=== PATIENT | female | born 1995 | race Caucasian/White ===

== ENCOUNTER 2020-07-03 19:50 | Emergency (ER) | payer MEDICAID ==
[~2020-07-03] VITALS: Ht 175.3 cm; Wt 106.0 kg
[2020-07-03 20:49] VITALS: BP 133/74
== END 2020-07-03 20:51 | disposition home or self-care (01) ==
LOC: ER 19:50
DX: B34.9 Viral infection, unspecified (principal); R07.89 Other chest pain; M79.10 Myalgia, unspecified site; J02.9 Acute pharyngitis, unspecified; F12.10 Cannabis abuse, uncomplicated; Z03.818 Encounter for observation for suspected exposure to other biological agents ruled out
CPT/HCPCS: 87635; 93005; 99283; C9803

== ENCOUNTER 2020-07-31 22:00 | Emergency (ER) | payer MEDICAID ==
[~2020-07-31] VITALS: Ht 175.3 cm; Wt 104.0 kg
[2020-07-31 22:38] VITALS: BP 138/98
== END 2020-07-31 23:01 | disposition home or self-care (01) ==
LOC: ER 22:00
DX: U07.1 COVID-19 (principal); R07.1 Chest pain on breathing
CPT/HCPCS: 99281

== ENCOUNTER 2020-09-16 04:10 | Emergency (ER) | payer MEDICAID, OTHER ==
[~2020-09-16] VITALS: Ht 175.3 cm; Wt 104.0 kg
[2020-09-16 04:17] VITALS: BP 127/83
[2020-09-16] MEDS ORDERED: METOCLOPRAMIDE HCL 10MG/2ML VIAL IV STA (05:19)
[2020-09-16 05:37] LABS: BASOPHILS % 0.3 % (0.0-2.0); HEMATOCRIT. 41.2 % (36.0-48.0); HEMOGLOBIN. 13.5 g/dL (12.0-16.0); LYMPHOCYTES % 16.2 % (20.0-50.0); MEAN CORPUSCULAR VOLUME 94.7 fL (81.0-99.0); MEAN PLATELET VOLUME 9.9 fl (7.4-10.4); MONOCYTES % 5.8 % (2.0-8.0); NEUTROPHILS % 76.7 % (40.0-76.0); PLATELET 220 x1000/uL (130-400); RED BLOOD CELL COUNT 4.35 mill/uL (4.2-5.4); RED CELL DISTRIBUTION WIDTH 13.1 % (11.6-14.6)
[2020-09-16 05:44] LABS: CHLORIDE 105 mEq/L (98-107)
[2020-09-16 05:48] LABS: ETHANOL BLOOD < 10 mg/dL
[2020-09-16 05:58] LABS: CLARITY URINE CLOUDY (CLEAR); COLOR URINE YELLOW (YELLOW); KETONES URINE TRACE (NEGATIVE); LEUKOCYTE ESTERASE URINE 3+ (NEGATIVE); NITRITE URINE NEGATIVE (NEGATIVE); OCCULT BLOOD URINE NEGATIVE (NEGATIVE); PROTEIN URINE TRACE (NEGATIVE); SPECIFIC GRAVITY URINE 1.028 (1.005-1.030)
[2020-09-16 06:01] LABS: HCG SCREEN NEGATIVE
[2020-09-16] MEDS ORDERED: FAMOTIDINE 20MG TABLET PO ONE (06:15)
[2020-09-16] MEDS ORDERED: FAMOTIDINE 20MG TABLET PO SCH (06:30)
[2020-09-16] MEDS ORDERED: FAMO40TA7 MT (06:52)
== END 2020-09-16 07:26 | disposition home or self-care (01) ==
LOC: ER 04:10
DX: K29.70 Gastritis, unspecified, without bleeding (principal); R82.81 Pyuria; K21.9 Gastro-esophageal reflux disease without esophagitis; F12.10 Cannabis abuse, uncomplicated
CPT/HCPCS: 36415; 80048; 80076; 80320; 81003; 81025; 83690; 84703; 85025; 96374; 99283; J2765; G0480

== ENCOUNTER 2020-12-02 21:53 | Emergency (ER) | payer MEDICAID ==
[~2020-12-02] VITALS: Ht 175.3 cm; Wt 110.4 kg
[~2020-12-02 21:53] MED LIST: FAMO40TA7 MT
[2020-12-02] MEDS ORDERED: ACETAMINOPHEN 325MG TABLET PO ONE (22:45)
[2020-12-02] MEDS ORDERED: NITROGLYCERIN 0.4MG TABLET SL SL PRN (22:45)
[2020-12-02] MEDS ORDERED: ASPIRIN 81MG TABLET PO ONE (22:45)
[2020-12-03 00:13] LABS: BASOPHILS % 0.5 % (0.0-2.0); EOSINOPHILS % 2.4 % (0.0-5.0); HEMATOCRIT. 38.4 % (36.0-48.0); LYMPHOCYTES % 29.4 % (20.0-50.0); MEAN CORPUSCULAR HEMOGLOBIN 31.7 pg (28.0-32.0); MEAN CORPUSCULAR VOLUME 93.5 fL (81.0-99.0); MEAN PLATELET VOLUME 9.7 fl (7.4-10.4); MONOCYTES % 7.1 % (2.0-8.0); NEUTROPHILS % 60.6 % (40.0-76.0); PLATELET 207 x1000/uL (130-400); RED CELL DISTRIBUTION WIDTH 13.1 % (11.6-14.6)
[2020-12-03 00:18] LABS: CHLORIDE 105 mEq/L (98-107)
[2020-12-03 00:20] LABS: HCG SCREEN NEGATIVE
[2020-12-03 00:21] LABS: PARTIAL THROMBOPLASTIN TIME 26.3 sec (23.4-31.0); PROTHROMBIN TIME 10.3 sec (9.6-11.0)
[2020-12-03] MEDS ORDERED: IBUP-2028 MT (01:43)
[2020-12-03 03:12] VITALS: BP 145/84
== END 2020-12-03 03:13 | disposition home or self-care (01) ==
LOC: ER 21:53
DX: R07.89 Other chest pain (principal); R42 Dizziness and giddiness; D64.9 Anemia, unspecified; F12.10 Cannabis abuse, uncomplicated
CPT/HCPCS: 36415; 71045; 80053; 81025; 83880; 84484; 84703; 85025; 85610; 85730; 93005; 99285; Z7610

== ENCOUNTER 2021-11-06 03:25 | Emergency (ER) | payer MEDICAID, OTHER ==
[~2021-11-06] VITALS: Ht 175.3 cm; Wt 104.0 kg
[~2021-11-06 03:25] MED LIST changes: +IBUP-2028 MT
[2021-11-06] MEDS ORDERED: IBUPROFEN 600MG TABLET PO ONE (04:15)
[2021-11-06 04:23] LABS: BASOPHILS % 0.4 % (0.0-2.0); EOSINOPHILS % 0.9 % (0.0-5.0); HEMATOCRIT. 36.9 % (36.0-48.0); HEMOGLOBIN. 12.6 g/dL (12.0-16.0); LYMPHOCYTES % 27.2 % (20.0-50.0); MEAN CORPUSCULAR HEMOGLOBIN 32.7 pg (28.0-32.0); MEAN CORPUSCULAR VOLUME 95.9 fL (81.0-99.0); MEAN PLATELET VOLUME 8.8 fl (7.4-10.4); MONOCYTES % 7.1 % (2.0-8.0); NEUTROPHILS % 64.4 % (40.0-76.0); PLATELET 169 x1000/uL (130-400); RED BLOOD CELL COUNT 3.85 mill/uL (4.2-5.4); RED CELL DISTRIBUTION WIDTH 14.1 % (11.6-14.6)
[2021-11-06 04:30] LABS: CHLORIDE 104 mEq/L (98-107)
[2021-11-06 04:42] LABS: T4 FREE 0.81 ng/dL (0.76-1.46)
[2021-11-06 05:15] VITALS: BP 130/96
== END 2021-11-06 05:16 | disposition home or self-care (01) ==
LOC: ER 03:25
DX: R00.2 Palpitations (principal); F12.10 Cannabis abuse, uncomplicated
CPT/HCPCS: 36415; 71045; 80053; 83880; 84439; 84443; 84484; 85025; 93005; 99285

== ENCOUNTER 2022-01-12 19:04 | Emergency (ER) | payer OTHER ==
[~2022-01-12] VITALS: Ht 175.3 cm; Wt 104.0 kg
[2022-01-12] MEDS ORDERED: CHLORDIAZEPOXIDE 25MG CAPSULE PO ONE (20:15)
[2022-01-12] MEDS ORDERED: LORAZEPAM 0.5MG TABLET PO ONE (20:15)
[2022-01-12 20:52] VITALS: BP 135/89
== END 2022-01-12 20:55 | disposition home or self-care (01) ==
LOC: ER 19:04
DX: F10.939 Alcohol use, unspecified with withdrawal, unspecified (principal); F12.10 Cannabis abuse, uncomplicated; R00.0 Tachycardia, unspecified; Y90.9 Presence of alcohol in blood, level not specified
CPT/HCPCS: 81025; 93005; 99283

== ENCOUNTER 2022-04-01 04:03 | Emergency (ER) | payer OTHER, MEDICAID ==
[~2022-04-01] VITALS: Ht 175.3 cm; Wt 107.0 kg
[2022-04-01] MEDS ORDERED: T3 PO (06:21)
[2022-04-01 06:29] VITALS: BP 134/76
== END 2022-04-01 06:36 | disposition home or self-care (01) ==
LOC: ER 04:03
DX: S22.42XA Multiple fractures of ribs, left side, initial encounter for closed fracture (principal); S62.617A Displaced fracture of proximal phalanx of left little finger, initial encounter for closed fracture; V49.49XA Driver injured in collision with other motor vehicles in traffic accident, initial encounter; Y93.89 Activity, other specified; Y92.488 Other paved roadways as the place of occurrence of the external cause; R00.0 Tachycardia, unspecified
CPT/HCPCS: 29130; 71045; 71100; 73140; 93005; 99284

== ENCOUNTER 2023-12-31 09:42 | Emergency (ER) | payer MEDICAID, OTHER ==
[~2023-12-31] VITALS: Ht 177.8 cm; Wt 99.0 kg
[~2023-12-31 09:42] MED LIST changes: +T3 PO
[2023-12-31 09:51] VITALS: BP 149/97; PULSE 84; RESP 20; TEMP 98.2; O2SAT 97
[2023-12-31] MEDS ORDERED: ONDANSETRON 4MG ODT PO ONE (10:00)
[2023-12-31 10:21] LABS: BASOPHILS % 0.5 % (0.0-2.0); DIFFERENTIAL COMMENT 0; EOSINOPHILS % 0.6 % (0.0-5.0); HEMATOCRIT. 40.4 % (36.0-48.0); HEMOGLOBIN. 13.6 g/dL (12.0-16.0); LYMPHOCYTES % 38.8 % (20.0-50.0); MEAN CORPUSCULAR HEMOGLOBIN 33.7 pg (28.0-32.0); MEAN CORPUSCULAR HGB CONC 33.5 g/dL (31.0-37.0); MEAN CORPUSCULAR VOLUME 100.5 fL (81.0-99.0); MEAN PLATELET VOLUME 9.2 fl (7.4-10.4); MONOCYTES % 8.5 % (2.0-8.0); NEUTROPHILS % 51.6 % (40.0-76.0); PLATELET 255 x1000/uL (130-400); RED BLOOD CELL COUNT 4.02 mill/uL (4.2-5.4); RED CELL DISTRIBUTION WIDTH 16.2 % (11.6-14.6); WHITE BLOOD COUNT 4.1 x1000/uL (4.5-11.0)
[2023-12-31 10:24] LABS: HCG SCREEN NEGATIVE
[2023-12-31 10:25] LABS: CHLORIDE 106 mEq/L (98-107); POTASSIUM 3.7 mEq/L (3.5-5.1); SODIUM 139 mEq/L (136-145)
[2023-12-31 10:26] LABS: CARBON DIOXIDE 25 mEq/L (21-32)
[2023-12-31 10:31] LABS: CREATININE 0.7 mg/dL (0.6-1.0); GLUCOSE 116 mg/dL (70-105)
[2023-12-31 11:18] LABS: CLARITY URINE CLOUDY (CLEAR); COLOR URINE YELLOW (YELLOW); GLUCOSE URINE NEGATIVE (NEGATIVE); KETONES URINE NEGATIVE (NEGATIVE); LEUKOCYTE ESTERASE URINE 2+ (NEGATIVE); NITRITE URINE NEGATIVE (NEGATIVE); OCCULT BLOOD URINE NEGATIVE (NEGATIVE); PH URINE 6.5 (4.5-8.0); PROTEIN URINE NEGATIVE (NEGATIVE); UROBILINOGEN URINE 0.2 E.U./dL (0.2-1.0)
[2023-12-31 11:30] LABS: SQUAMOUS EPITHELIAL CELL URINE 3+ /lpf (RARE/1+)
[2023-12-31 11:31] LABS: WBC URINE 15-25 /hpf (0-2)
[2023-12-31 11:32] LABS: BACTERIA URINE 3+
[2023-12-31 11:37] LABS: UREA NITROGEN BLOOD 9 mg/dL (9-23)
[2023-12-31] MEDS ORDERED: PANTOPRAZOLE 40MG DR TABLET PO ONE (11:45)
[2023-12-31 12:14] LABS: ALANINE AMINOTRANSFERASE 46 IU/L (10-49); ALBUMIN 4.9 g/dL (3.2-4.8); ASPARTATE AMINOTRANSFERASE 96 IU/L (<34); BILIRUBIN DIRECT 0.2 mg/dL (<=3.0); BILIRUBIN TOTAL 0.6 mg/dL (0.1-1.0); PROTEIN TOTAL 7.5 g/dL (6.0-8.3)
[2023-12-31] MEDS: ONDANSETRON 4MG ODT PO NR (13:57)
[2023-12-31] MEDS: PANTOPRAZOLE 40MG DR TABLET PO NR (13:57)
[2023-12-31] MEDS ORDERED: TOPUD MT (14:56)
[2023-12-31] MEDS ORDERED: PANT40SU MT (14:56)
[2023-12-31] MEDS ORDERED: ONDA4TAB50 MT (14:56)
[2023-12-31] MEDS ORDERED: NITR-87 MT (15:07)
== END 2023-12-31 15:09 | disposition home or self-care (01) ==
LOC: ER 09:42
DX: F10.10 Alcohol abuse, uncomplicated (principal); F12.10 Cannabis abuse, uncomplicated; K29.70 Gastritis, unspecified, without bleeding; N39.0 Urinary tract infection, site not specified; S40.022A Contusion of left upper arm, initial encounter; S40.021A Contusion of right upper arm, initial encounter; X58.XXXA Exposure to other specified factors, initial encounter; Y90.9 Presence of alcohol in blood, level not specified; Y93.9 Activity, unspecified; Y92.89 Other specified places as the place of occurrence of the external cause; Y99.8 Other external cause status
CPT/HCPCS: 99283; 80076; 80048; 81003; 81025; 84703; 83690; 85025; 87086; 36415; Q0162

== ENCOUNTER 2024-06-18 06:33 | Emergency (ER) | payer MEDICAID, OTHER ==
[~2024-06-18] VITALS: Ht 175.3 cm; Wt 90.3 kg
[~2024-06-18 06:33] MED LIST changes: +NITR-87 MT; +ONDA4TAB50 MT; +PANT40SU MT; +TOPUD MT
[2024-06-18 06:45] VITALS: O2SAT 98
[2024-06-18] MEDS: LORAZEPAM 2MG/ML INJ IV STA (06:47)
[2024-06-18] MEDS: SODIUM CHLORIDE 0.9% 1,000 ML IV ONE (07:00)
[2024-06-18 07:25] LABS: BASOPHILS % 0.5 % (0.0-2.0); DIFFERENTIAL COMMENT 0; EOSINOPHILS % 0.1 % (0.0-5.0); HEMOGLOBIN. 13.5 g/dL (12.0-16.0); LYMPHOCYTES % 12.3 % (20.0-50.0); MEAN CORPUSCULAR VOLUME 109.1 fL (81.0-99.0); MEAN PLATELET VOLUME 9.1 fl (7.4-10.4); NEUTROPHILS % 82.1 % (40.0-76.0); PLATELET 153 x1000/uL (130-400); RED BLOOD CELL COUNT 3.76 mill/uL (4.2-5.4); RED CELL DISTRIBUTION WIDTH 18.5 % (11.6-14.6)
[2024-06-18 07:28] LABS: CARBON DIOXIDE 18 mEq/L (21-32); CHLORIDE 102 mEq/L (98-107); POTASSIUM 3.6 mEq/L (3.5-5.1); SODIUM 138 mEq/L (136-145)
[2024-06-18 07:29] LABS: CALCIUM 8.9 mg/dL (8.7-10.4)
[2024-06-18 07:30] LABS: *AMPHETAMINES SCREEN URINE NEGATIVE (NEGATIVE); *BARBITURATES SCREEN URINE NEGATIVE (NEGATIVE); *BENZODIAZEPINES SCREEN URINE NEGATIVE (NEGATIVE); *COCAINE SCREEN URINE NEGATIVE (NEGATIVE); CANNABINOID URINE SCREEN NEGATIVE (NEGATIVE); ECSTASY MDMA SCREEN URINE NEGATIVE (NEGATIVE); METHADONE URINE SCREEN NEGATIVE (NEGATIVE); OPIATES URINE SCREEN NEGATIVE (NEGATIVE); PHENCYCLIDINE URINE SCREEN NEGATIVE (NEGATIVE)
[2024-06-18 07:32] LABS: HCG SCREEN NEGATIVE
[2024-06-18 07:33] LABS: CREATININE 0.7 mg/dL (0.6-1.0)
[2024-06-18 07:34] LABS: ETHANOL BLOOD 210 mg/dL (<10); GLUCOSE 79 mg/dL (70-105); UREA NITROGEN BLOOD 12 mg/dL (9-23)
[2024-06-18 07:35] LABS: ACETAMINOPHEN < 2 ug/mL (10-30); ALANINE AMINOTRANSFERASE 131 IU/L (10-49); ALBUMIN 4.5 g/dL (3.2-4.8); ASPARTATE AMINOTRANSFERASE 251 IU/L (<34)
[2024-06-18 07:36] LABS: BETA HYDROXYBUTYRATE 2.5 mMol/L (0.0-0.3); BILIRUBIN DIRECT 0.3 mg/dL (<=3.0); BILIRUBIN TOTAL 0.8 mg/dL (0.1-1.0); PROTEIN TOTAL 7.4 g/dL (6.0-8.3)
[2024-06-18] MEDS: DEXT 5%/0.9% NACL 1,000 ML IV ONE (08:23)
[2024-06-18] MEDS: FOLIC ACID 1 MG, THIAMINE HCL 100 MG, MVI, ADULT NO.1 10 ML in DEXTROSE 5% WATER 1,000 ML IV ONE (10:51)
[2024-06-18 12:55] VITALS: BP 116/71; PULSE 101; RESP 20; TEMP 36.72516; O2SAT 99
== END 2024-06-18 13:06 | disposition short-term general hospital (02) ==
LOC: ER 06:42 → EDBEDREQ 07:57 → ER 13:06
DX: F10.129 Alcohol abuse with intoxication, unspecified (principal); F12.10 Cannabis abuse, uncomplicated; Y90.7 Blood alcohol level of 200-239 mg/100 ml; Z79.899 Other long term (current) drug therapy
CPT/HCPCS: 80076; 80305; 80048; 80307; 82010; 80329; 80320; 82962; 84703; 83690; 85025; 36415; 93005; 96361; 96365; 96375; 99291; J3490 ×2; J2060; J3411; J7042; J7070; J7030; Z7610 ×5; G0480

== ENCOUNTER 2025-06-21 23:12 | Emergency (ER) | payer MEDICAID ==
[~2025-06-21] VITALS: Ht 175.3 cm; Wt 81.6 kg
[2025-06-21 23:18] VITALS: O2SAT 98
[2025-06-22 00:06] LABS: HEMATOCRIT. 43.1 % (36.0-48.0); HEMOGLOBIN. 14.4 g/dL (12.0-16.0); MEAN PLATELET VOLUME 10.4 fl (7.4-10.4); PLATELET 76 x1000/uL (130-400); RED BLOOD CELL COUNT 4.15 mill/uL (4.2-5.4); RED CELL DISTRIBUTION WIDTH 13.7 % (11.6-14.6)
[2025-06-22 00:07] LABS: CLARITY URINE CLEAR (CLEAR); COLOR URINE YELLOW (YELLOW); GLUCOSE URINE NEGATIVE (NEGATIVE); KETONES URINE NEGATIVE (NEGATIVE); LEUKOCYTE ESTERASE URINE TRACE (NEGATIVE); NITRITE URINE NEGATIVE (NEGATIVE); OCCULT BLOOD URINE NEGATIVE (NEGATIVE); PH URINE 6.5 (4.5-8.0); PROTEIN URINE 1+ (NEGATIVE); SPECIFIC GRAVITY URINE 1.005 (1.005-1.030); UROBILINOGEN URINE 1.0 E.U./dL (0.2-1.0)
[2025-06-22] MEDS: IBUPROFEN 600MG TABLET PO ONE (00:16)
[2025-06-22 00:19] LABS: CREATININE 0.6 mg/dL (0.6-1.0); UREA NITROGEN BLOOD < 5 mg/dL (9-23)
[2025-06-22 00:21] LABS: ASPARTATE AMINOTRANSFERASE 635 IU/L (<34); BILIRUBIN DIRECT 0.8 mg/dL (<=3.0); BILIRUBIN TOTAL 1.5 mg/dL (0.1-1.0); PROTEIN TOTAL 8.2 g/dL (6.0-8.3)
[2025-06-22 00:26] LABS: HCG SCREEN NEGATIVE
[2025-06-22 01:11] LABS: BACTERIA URINE TRACE; RBC URINE NONE SEEN /hpf (0-2); SQUAMOUS EPITHELIAL CELL URINE 3+ /lpf (RARE/1+)
[2025-06-22 02:42] LABS: ATYPICAL LYMPHOCYTES 1; EOSINOPHILS % MANUAL 1.0 % (0.0-5.0); LYMPHOCYTES % MANUAL 56.0 % (20.0-60.0); MONOCYTES % MANUAL 14.0 % (2.0-8.0); NEUTROPHILS % MANUAL 28.0 % (45.0-75.0)
[2025-06-22 02:43] LABS: PLATELET ESTIMATE SLIGHTLY DECREASED
[2025-06-22 03:09] VITALS: BP 127/90; PULSE 85; RESP 13; TEMP 37.1; O2SAT 95
== END 2025-06-22 03:10 | disposition home or self-care (01) ==
LOC: ER 23:12
DX: R20.2 Paresthesia of skin (principal); N39.0 Urinary tract infection, site not specified; R16.0 Hepatomegaly, not elsewhere classified; R10.20 Pelvic and perineal pain unspecified side; D72.819 Decreased white blood cell count, unspecified; D69.6 Thrombocytopenia, unspecified; F10.90 Alcohol use, unspecified, uncomplicated; Z79.2 Long term (current) use of antibiotics; Z79.899 Other long term (current) drug therapy; Y90.9 Presence of alcohol in blood, level not specified
CPT/HCPCS: 36415; 71045; 76705; 76830; 76856; 80048; 80076; 81003; 81025; 84703; 85025; 93970; 99284